=== PATIENT | male | born 2000 | race Caucasian/White ===

== ENCOUNTER 2023-09-01 05:16 | Emergency (ER) | payer OTHER, SELFPAY ==
[2023-09-01 05:21] VITALS: BP 136/94; PULSE 76; RESP 14; TEMP 36.3; O2SAT 97
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
[2023-09-01 08:05] VITALS: BP 117/60; PULSE 75; RESP 18; TEMP 36.6; O2SAT 98
== END 2023-09-01 08:12 | disposition home or self-care (01) ==
LOC: ANHED 08:09
PROVIDERS: Emergency Provider Emergency Medicine
DX: H57.89 Other specified disorders of eye and adnexa (principal); Z77.098 Contact with and (suspected) exposure to other hazardous, chiefly nonmedicinal, chemicals
CPT/HCPCS: 99283